=== PATIENT | female | born 1995 | race American Indian/Alaskan Native ===

== ENCOUNTER 2019-04-10 18:40 | Emergency (ER) | payer SELFPAY ==
[2019-04-10 19:15] LABS: Bacteria,Urine 1+ /HPF (Negative); Bilirubin,Urine NEG (Negative); Blood,Urine NEG (Negative); Color,Urine Yellow (Yellow); Mucus,Urine 3+ /HPF; Urobilinogen,Urine < 2.0 mg/dL (<2.0)
[2019-04-10 19:17] LABS: HCG Qualitative,Urine Negative (Negative)
[2019-04-10] MEDS ORDERED: SODIUM CHLORIDE 0.9% 1000 ML 1,000 ML IV ONE (21:08)
[2019-04-10] MEDS ORDERED: FAMOTIDINE 20 MG/2 ML INJ IV ONE (21:08)
[2019-04-10] MEDS ORDERED: ONDANSETRON 4 MG/2 ML INJ IV ONE (21:08)
[2019-04-10] MEDS ORDERED: KETOROLAC 30 MG/1 ML INJ IV ONE (21:09)
[2019-04-10 21:31] VITALS: BP 116/70
[2019-04-10 21:38] LABS: Basophils % (Auto) 0.3 % (0.0-1.8); Eosinophils % (Auto) 0.7 % (0.0-4.3); Hematocrit 45.7 % (30.3-42.9); Hemoglobin 14.9 gm/dl (10.1-14.3); Lymphocytes # (Auto) 0.8 K/mm3 (1.2-5.4); Lymphocytes % (Auto) 14.2 % (13.4-35.0); Mean Corpuscular HGB Conc 33 % (30-34); Mean Corpuscular Volume 86 fl (79-97); Monocytes # (Auto) 0.5 K/mm3 (0.0-0.8); Monocytes % (Auto) 8.8 % (0.0-7.3); Platelet Count 226 K/mm3 (140-440); Red Blood Count 5.32 M/mm3 (3.65-5.03); Red Cell Distribution Width 12.8 % (13.2-15.2)
[2019-04-10 21:59] LABS: Alanine Aminotransferase 22 units/L (7-56); Albumin 4.8 g/dL (3.9-5); BUN/Creatinine Ratio 14; Blood Urea Nitrogen 10 mg/dL (7-17); Calcium 10.3 mg/dL (8.4-10.2); Hemolysis Index 13
--- NOTE | 2019-04-10 23:24 | Emergency Department Report ---
ED N/V/D HPI - General Chief complaint: Upper Respiratory Infection Stated complaint: FLU LIKE SYM Source: patient Mode of arrival: Ambulatory Limitations: No Limitations - History of Present Illness Initial comments: Patient is a nulliparous 23-year-old -[place] female with no past medical history who presents to the ED with complaint of acute onset persistent intermittent nausea, vomiting and diarrhea for the last 2 days. Patient states that she may have consumed contaminated chicken meal before the onset of these symptoms. Patient states that she has had multiple episodes of nausea and vomiting and diarrhea now she also has developed diffuse body aches and pains and generalized weakness and lack of appetite. Patient also complains of nasal and sinus congestion. Patient denies abdominal pain, fever, dizziness, syncope, chest pain, shortness of breath, cough, change in vision, dysuria or urinary frequency and urgency. MD complaint: nausea, vomiting, diarrhea -: Sudden, days(s) (2) Description of Vomiting: food contents, watery, bilious Description of Diarrhea: water Associated Abdominal Pain: No Location: diffuse Radiation: none Severity: moderate Pain Scale: 0 Consistency: intermittent Improves with: none Worsens with: eating Context: possible food poisoning Associated Symptoms: denies other symptoms, myalgias, headaches, loss of appetite, malaise, nausea/vomiting, weakness. denies: chest pain, cough, diaphoresis, fever/chills, rash, dysuria, shortness of breath, syncope, other - Related Data Previous Rx's Medication Instructions Recorded Last Taken Type Diphenoxylate/Atropine [Lomotil] 1 tab PO Q4H PRN #12 tablet 04/10/19 Unknown Rx Famotidine [Pepcid] 20 mg PO Q12H #30 tablet 04/10/19 Unknown Rx Ibuprofen [Motrin] 600 mg PO Q8H PRN #20 tablet 04/10/19 Unknown Rx Ondansetron [Zofran Odt] 4 mg PO Q6HR PRN #20 tab.rapdis 04/10/19 Unknown Rx Allergies Allergy/AdvReac Type Severity Reaction Status Date / Time No Known Allergies Allergy Unverified 04/10/19 18:44 ED Review of Systems ROS: Stated complaint: FLU LIKE SYM Other details as noted in HPI Constitutional: malaise, weakness. denies: chills, fever Eyes: denies: eye pain, eye discharge, vision change ENT: congestion. denies: ear pain, throat pain Respiratory: denies: cough, shortness of breath, wheezing Cardiovascular: denies: chest pain, palpitations Endocrine: no symptoms reported Gastrointestinal: nausea, vomiting, diarrhea. denies: abdominal pain Genitourinary: denies: urgency, dysuria, discharge Musculoskeletal: arthralgia, myalgia. denies: back pain, joint swelling Skin: denies: rash, lesions Neurological: headache. denies: weakness, paresthesias Psychiatric: denies: anxiety, depression Hematological/Lymphatic: denies: easy bleeding, easy bruising ED Past Medical Hx - Past Medical History Previous Medical History?: No - Surgical History Past Surgical History?: No - Social History Smoking Status: Current Every Day Smoker Substance Use Type: Alcohol - Medications Home Medications: Home Medications Medication Instructions Recorded Confirmed Last Taken Type Diphenoxylate/Atropine [Lomotil] 1 tab PO Q4H PRN #12 tablet 04/10/19 Unknown Rx Famotidine [Pepcid] 20 mg PO Q12H #30 tablet 04/10/19 Unknown Rx Ibuprofen [Motrin] 600 mg PO Q8H PRN #20 tablet 04/10/19 Unknown Rx Ondansetron [Zofran Odt] 4 mg PO Q6HR PRN #20 tab.rapdis 04/10/19 Unknown Rx ED Physical Exam - General Limitations: No Limitations General appearance: alert, in no apparent distress - Head Head exam: Present: atraumatic, normocephalic, normal inspection - Eye Eye exam: Present: normal appearance, PERRL, EOMI. Absent: scleral icterus, conjunctival injection, nystagmus, periorbital swelling, periorbital tenderness Pupils: Present: normal accommodation - ENT ENT exam: Present: normal exam, normal orophraynx, mucous membranes moist, TM's normal bilaterally, normal external ear exam - Neck Neck exam: Present: normal inspection - Respiratory Respiratory exam: Present: normal lung sounds bilaterally. Absent: respiratory distress, wheezes, rales, chest wall tenderness, accessory muscle use - Cardiovascular Cardiovascular Exam: Present: normal rhythm, tachycardia, normal heart sounds. Absent: systolic murmur, diastolic murmur, rubs, gallop - GI/Abdominal GI/Abdominal exam: Present: soft, normal bowel sounds. Absent: tenderness, guarding, rebound, hyperactive bowel sounds, hypoactive bowel sounds, organomegaly - Extremities Exam Extremities exam: Present: normal inspection, full ROM, normal capillary refill - Back Exam Back exam: Present: normal inspection, full ROM. Absent: muscle spasm, paraspinal tenderness, vertebral tenderness - Neurological Exam Neurological exam: Present: alert, oriented X3, CN II-XII intact, normal gait, reflexes normal - Psychiatric Psychiatric exam: Present: normal affect, normal mood - Skin Skin exam: Present: warm, dry, intact, normal color. Absent: rash ED Course Vital Signs 04/10/19 04/10/19 18:45 21:29 Temperature 99.0 F 99.0 F Pulse Rate 111 H 96 H Respiratory 16 18 Rate Blood Pressure 119/81 Blood Pressure 116/70 [Left] O2 Sat by Pulse 100 98 Oximetry ED Medical Decision Making - Lab Data Result diagrams: 04/10/19 21:22 04/10/19 21:22 - Medical Decision Making This is a 23-year-old -[place] female with no past medical history who presented to the ED with acute onset persistent nausea and vomiting with diarrhea for 2 days after eating contaminated chicken meal. In the ED, patient is alert and oriented 3 and is not in distress but appears to be uncomfortable and generalized weakness, but tachycardic in triage. Lab test results were reviewed and are all nonactionable. Patient received normal saline 1 L IV bolus, antacids and antiemetics in the ED. On reevaluation, patient's symptoms resolved, patient has not had any nausea or vomiting in the ED and was able pass oral fluid challenge in the ED. Patient smiling during physical exam stating that she is feeling much better after the treatment would like to be discharged. Patient was therefore discharged home on antiemetics, antacids and pain medications and advised to follow-up with her primary care physician in 5-7 days for reevaluation. Patient was advised to maintain a clear liquid diet for 12- 24 hours before she resumes eating regular meals. Patient was also advised return to the ED immediately if symptoms get worse. - Differential Diagnosis Viral gastroenteritis; URI; GERD; Gastritis; dehydration; UTI Critical care attestation.: If time is entered above; I have spent that time in minutes in the direct care of this critically ill patient, excluding procedure time. ED Disposition Clinical Impression: Viral gastroenteritis, Nausea, vomiting and diarrhea Disposition: TO HOME OR SELFCARE Is pt being admited?: No Does the pt Need Aspirin: No Condition: Stable Instructions: Acute Nausea and Vomiting (ED), Abdominal Pain (ED), Gastroenteritis (ED) Additional Instructions: Maintain a clear liquid diet for 12-24 hours, drink plenty of fluids and take medications as advised. Return to the ED immediately if symptoms get worse. Otherwise follow-up with your primary care physician in 5-7 days for reevaluation. Prescriptions: Diphenoxylate/Atropine [Lomotil] 1 tab PO Q4H PRN #12 tablet PRN Reason: Diarrhea Ibuprofen [Motrin] 600 mg PO Q8H PRN #20 tablet PRN Reason: Pain Famotidine [Pepcid] 20 mg PO Q12H #30 tablet Ondansetron [Zofran Odt] 4 mg PO Q6HR PRN #20 tab.rapdis PRN Reason: Nausea And Vomiting Referrals: [facility] [Outside] - 3-5 Days Forms: Work/School Release Form(ED) Time of Disposition: 23:25 Print Language: WELSH
== END 2019-04-10 23:40 | disposition home or self-care (01) ==
LOC: ED 18:40
DX: A08.4 Viral intestinal infection, unspecified (principal); F17.200 Nicotine dependence, unspecified, uncomplicated; F10.10 Alcohol abuse, uncomplicated; R11.2 Nausea with vomiting, unspecified; Z79.899 Other long term (current) drug therapy
CPT/HCPCS: 36415; 80053; 81001; 81025; 83690; 85025; 96361; 96374; 96375; 99283; J1885; J2405; J7030